=== PATIENT | male | born 1975 | race Caucasian/White ===

== ENCOUNTER 2018-06-23 14:15 | Inpatient (IN) | payer OTHER ==
[~2018-06-23] VITALS: Ht 182.9 cm; Wt 124.8 kg
[2018-06-23 14:58] LABS: ABSOLUTE BASOPHIL COUNT 0.1 /CUMM (0.0-0.2); ABSOLUTE EOSINOPHIL COUNT 0.1 /CUMM (0.0-0.7); ABSOLUTE GRANULOCYTE CT 3.4 /CUMM (1.4-6.5); ABSOLUTE LYMPH COUNT 1.5 /CUMM (1.2-3.4); ABSOLUTE MONOCYTE COUNT 0.3 /CUMM (0.10-0.60); BASOPHIL % 1.5 % (0.0-2.0); EOSINOPHIL % 1.7 % (0-5); HEMATOCRIT 46.8 % (42-52); MEAN CORPUSCULAR HGB 32.8 PG (27.0-31.0); MEAN CORPUSCULAR HGB CONC 35.1 G/DL (33.0-37.0); MEAN CORPUSCULAR VOLUME 93.5 FL (80.0-94.0); MEAN PLATELET VOLUME 7.1 FL (7.4-10.4); PLATELET COUNT 292 /CUMM (130-400); RED BLOOD CELL CT 5.01 /CUMM (4.70-6.10); WHITE BLOOD CELL COUNT 5.4 /CUMM (4.8-10.8)
[2018-06-23] MEDS ORDERED: WELLBUTRIN XL150 M2 PO (15:40)
[2018-06-23] MEDS ORDERED: OMEPRAZOLE40 M1 PO (15:41)
[2018-06-23] MEDS ORDERED: ESCITALOPRAM OX20 MG PO (15:41)
[2018-06-23] MEDS ORDERED: MIRTAZAPINE7.5 M1 PO (15:41)
[2018-06-23] MEDS ORDERED: NYSTATIN100000 UNI PO (15:42)
--- NOTE | 2018-06-23 15:43 | ED PSYCHIATRIC COMPLAINT ---
History of Present Illness General Chief Complaint: ETOH/Drug Related Complaint Stated Complaint: SENT IN FOR HIGH WATCH Source: patient, Exam Limitations: poor historian, intoxication Vital Signs & Intake/Output Vital Signs & Intake/Output Vital Signs Date Time Temp Pulse Resp B/P B/P Pulse O2 O2 Flow FiO2 Mean Ox Delivery Rate 06/25 1852 98.3 102 20 152/93 96 Room Air 06/25 1430 97.8 92 18 125/87 97 Room Air 06/25 1102 98.3 95 18 150/68 95 Room Air 06/25 1000 97.9 81 18 144/102 06/25 0933 81 144/102 06/25 0800 97.9 81 18 144/102 06/25 0747 97.9 81 18 144/102 95 Room Air 06/25 0200 97.5 81 20 152/94 06/25 0159 97.5 81 20 152/94 97 06/25 0029 139/86 06/24 2245 107 164/121 06/24 2200 98.3 107 20 164/121 06/24 2200 98.3 107 20 164/121 95 Room Air 06/24 2000 98.0 94 20 154/100 ED Intake and Output 06/25 0000 06/24 1200 Intake Total 550 810 Output Total Balance 550 810 Intake, IV 50 750 Intake, Oral 500 60 Number 1 0 Bowel Movements Allergies Coded Allergies: No Known Allergies (06/23/18) Reconcile Medications Acamprosate Calcium 333 MG TABLET. 2 TAB PO TID alc dependence (Reported) Bupropion HCl (Wellbutrin XL) 150 MG TAB.ER.24H 1 TAB PO DAILY MENTAL HEALTH (Reported) Escitalopram Oxalate 20 MG TABLET 1 TAB PO DAILY MENTAL HEALTH (Reported) Mirtazapine 7.5 MG TABLET 1 TAB PO QPM SLEEP (Reported) Nystatin 100,000 UNIT/ML ORAL.SUSP 5 ML PO 4 TIMES/DAY GI (Reported) Omeprazole 40 MG CAPSULE. 1 CAP PO BID GI (Reported) Triage Note: 43 YO MALE TO TRIAGE FOR HIGHWATCH CLERENCE. 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 STATES ?SEIZURE HX WITH W/D. Triage Nurses Notes Reviewed? yes HPI: Patient presents for evaluation of alcohol dependence and cocaine use. Patient wishes to go to [facility] for residential alcohol rehabilitation. He admits to drinking 12-15 minutes daily and his last alcohol intake was prior to arrival to the emergency department. He states his last cocaine use was about 10-12 days ago, prior to that, up to 5 times per week. He recently had an endoscopy which showed inflammation of the esophagus and stomach for which she currently takes omeprazole and nystatin. Past History Travel History Traveled to [place] past 21 day No Medical History Any Pertinent Medical History? 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 No Review of Systems Review of Systems Constitutional: Reports: no symptoms. EENTM: Reports: no symptoms. Respiratory: Reports: no symptoms. Cardiovascular: Reports: no symptoms. GI: Reports: no symptoms. Genitourinary: Reports: no symptoms. Musculoskeletal: Reports: no symptoms. Skin: Reports: no symptoms. Neurological/Psychological: Reports: see HPI. Hematologic/Endocrine: Reports: no symptoms. Immunologic/Allergic: Reports: no symptoms. All Other Systems: Reviewed and Negative Physical Exam Physical Exam General Appearance: SEE BELOW Neurological/Psychiatric: SEE BELOW Comments: Gen.: Well-nourished, well-developed, no acute respiratory distress. Head: Normocephalic, atraumatic. Eyes: Normal inspection bilaterally Ears: Normal inspection bilaterally Nose: Normal inspection Throat/mouth : Moist mucosa Neck: Supple, full range of motion, no goiter Heart: Regular rate and rhythm, no murmurs rubs or gallops Lungs: Clear to auscultation bilaterally with normal air entry Chest: Nontender Back: Normal range of motion Abdomen: Soft, nontender, nondistended, normal bowel sounds Extremities: Normal range of motion grossly, equal radial pulses, no cyanosis clubbing or edema Neurologic: Cranial nerves grossly intact, speech is clear Skin: warm and dry Psychiatric: Calm, cooperative, no apparent delusions or hallucinations SAD PERSONS Done? patient not suicidal Progress Differential Diagnosis: drug intoxication, drug withdrawal, electrolyte abnormality, hypoglycemia Plan of Care: Current Medications Sig/Josiah Start time Last Medication Dose Stop Time Status Admin Lorazepam 1.5 MG Q8 06/25 1400 AC 06/25 (Ativan) 1319 Clonidine 0.1 MG BID 06/25 0900 AC 06/25 (Catapres) 0933 Acamprosate 666 MG TID 06/24 1000 AC 06/25 (Campral 333 MG) 1319 Lorazepam 0 Q1P PRN 06/24 1000 AC 06/25 (Ativan) 1848 Bupropion HCl 150 MG DAILY 06/24 09 AC 06/25 (Wellbutrin XL) 0903 Enoxaparin Sodium 40 MG DAILY 06/24 09 AC 06/25 (Lovenox) 0903 Escitalopram Oxalate 20 MG DAILY 06/24 09 AC 06/25 (Lexapro) 0904 Folic Acid 1 MG DAILY 06/24 09 AC 06/25 (Folic Acid) 0903 Multivitamins 1 TAB DAILY 06/24 09 AC 06/25 (Theragran Vitamins) 0903 Thiamine HCl 100 MG DAILY 06/24 09 AC 06/25 (Vitamin B1) 0903 Acetaminophen 650 MG Q6P PRN 06/23 2330 AC (Tylenol) Mirtazapine 7.5 MG QPM 06/23 2100 AC 06/24 (Remeron) 2122 Omeprazole 40 MG BID 06/23 2100 AC 06/25 (Prilosec) 0904 Nystatin 5 ML 4 TIMES/DAY 06/23 1719 AC 06/25 (Mycostatin Susp) 1811 Laboratory Tests 06/25/18 0845: Anion Gap 9, Estimated GFR > 60, BUN/Creatinine Ratio 16.3 Departure Departure Disposition: STILL A PATIENT Condition: Stable Clinical Impression Primary Impression: Alcohol withdrawal Referrals: Patient Has No Primary Care Dr (PCP/Family) Departure Forms: Customer Survey General Discharge Information Admission Note Spoke With: Wilian Jacob MD Documentation of Exam: Documentation of any treatments & extenuating circumstances including Concerns Regarding Discharge (functional status, medication knowledge or non-compliance, living conditions, etc.) that warrant an admission rather than observation: Continued alcohol consumption places the patient at high risk of pancreatitis, pancreatic failure, liver failure and cirrhosis. In order to avoid this the patient will need to cease drinking alcohol. Patient's alcohol use places pt at high risk of seizures and delirium tremens during cessation. Patient will be at high risk of withdrawal seizures and delirium tremens (both of which can be fatal) for up to 5 days after stopping alcohol. pt will require IV Ativan to prevent these complications. pt is therefore a very poor candidate for outpatient treatment given the above concerns and treatment needs. Pt will require a multiple day hospitalization. Critical Care Note Critical Care Note Critical Care Time: 30-74 min
[2018-06-23 16:20] VITALS: BP 130/86
[2018-06-23 18:01] VITALS: BP 140/92
[2018-06-23 20:10] VITALS: BP 132/84
[2018-06-23 20:12] LABS: PT 13.9 SEC (9.4-12.5)
--- NOTE | 2018-06-23 20:21 | History & Physical ---
Gerald Mcpherson 06/23/18 2020: General Information and HPI MD Statement: I have seen and personally examined REX DEE and documented this H&P. The patient is a 43 year old M who presented with a patient stated chief complaint of [detox to go to [facility]]. Source of Information: patient Exam Limitations: intoxication History of Present Illness: 43 year old male with a significant history of alcohol abuse presents for EtOH detox and high watch clearance. For over 2 years now the patient has consumed alcohol daily, often 10-15 "nips" of 100 proof vodka as well as several beers to "appear social". He feels now that "it is time to stop". He has previously been detoxed at alcohol treatment programs at [facility], but relapsed. He has never been treated in the ICU for detox, and is unsure whether he has had seizures due to alcohol withdrawal but thinks he possibly has. The patient's last drink was immediately prior to coming to the emergency department. 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 The patient reports that most mornings he wakes up with dry heaves, headache and tremorshe does not have these at presentation. He denies audio/visual/tactile hallucinations. Denies current agitation/anxiety. Additionally, he denies chest pain palpitations, shortness of breath, constipation or diarrhea, also denies suicidal ideation or homicidal ideation. There are no guns in the home. He denies tobacco use, but does report recent cocaine use, 2.5 weeks ago which for him is "a while". He snorts cocaine and uses approximately $100 worth each week. Allergies/Medications Allergies: Coded Allergies: No Known Allergies (06/23/18) Home Med list Bupropion HCl (Wellbutrin XL) 150 MG TAB.ER.24H 1 TAB PO DAILY MENTAL HEALTH (Reported) Escitalopram Oxalate 20 MG TABLET 1 TAB PO DAILY MENTAL HEALTH (Reported) Mirtazapine 7.5 MG TABLET 1 TAB PO QPM SLEEP (Reported) Nystatin 100,000 UNIT/ML ORAL.SUSP 5 ML PO 4 TIMES/DAY GI (Reported) Omeprazole 40 MG CAPSULE.DR 1 CAP PO BID GI (Reported) Past History Travel History Traveled to [place] past 21 day No Medical History Neurological: NONE EENT: NONE Cardiovascular: NONE Respiratory: NONE Gastrointestinal: NONE Hepatic: NONE Renal: NONE Musculoskeletal: NONE Psychiatric: depression, insomnia Endocrine: NONE Blood Disorders: NONE Cancer(s): NONE 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 Cardiovascular: Denies: chest pain, orthopena, palpitations, peripheral edema. Respiratory: Denies: cough, short of breath, sputum production. GI: Denies: abdominal pain, constipation, diarrhea, nausea, vomiting. Neurological/Psychological: Reports: tremors. Denies: anxiety, confusion, depressed, numbness. Exam & Diagnostic Data Last 24 Hrs of Vital Signs/I&O Vital Signs Date Time Temp Pulse Resp B/P B/P Pulse O2 O2 Flow FiO2 Mean Ox Delivery Rate 06/23 230 98.8 103 18 146/86 06/23 2300 98.8 103 18 146/86 96 Room Air 06/23 2010 98.0 106 18 132/84 06/23 1801 97.8 102 20 140/92 06/23 1801 97.8 102 20 140/92 99 Room Air 06/23 1620 98.3 100 18 130/86 06/23 1620 98.3 100 18 130/86 96 Room Air 06/23 1426 98.6 106 18 139/90 98 Room Air Intake & Output 06/24 0800 06/24 0000 06/23 1600 Intake Total 0 Output Total Balance 0 Intake, Oral 0 Patient 124.795 kg 122.47 kg Weight Weight Bed scale Reported by Patient Measurement Method Physical Exam General Appearance Alert (intoxicated), Oriented X3, Cooperative, No Acute Distress HEENT Atraumatic, PERRLA, EOMI (w/ horizontal nystagmus) Cardiovascular Regular Rate, Normal S1, Normal S2, No Murmurs Lungs Clear to Auscultation, Normal Air Movement Abdomen Normal Bowel Sounds, Soft, No Tenderness Neurological Strength at 5/5 X4 Ext, Normal Tone, Sensation Intact, unsteady gait (speech slightly slurred), speech slightly slurred Last 24 Hrs of Labs/[place]: Laboratory Tests 06/23/181957: PT 13.9 H, INR 1.27 H 09/18/18 1935: Urine Opiates Screen < 100, Methadone Screen 63, Barbiturate Screen < 60, Ur Phencyclidine Scrn < 6.00, Amphetamines Screen 139, U Benzodiazepines Scrn < 85, Urine Cocaine Screen < 50, Urine Cannabis Screen < 5.00, Urine Color YEL, Urine Clarity CLEAR, Urine pH 6.0, Ur Specific Early 1.015, Urine Protein NEG, Urine Ketones NEG, Urine Nitrite NEG, Urine Bilirubin NEG, Urine Urobilinogen 0.2, Ur Leukocyte Esterase NEG, Ur Microscopic EXAM NOT REQUIRED, Urine Hemoglobin NEG, Urine Glucose NEG 06/23/18 1448: Anion Gap 10, Estimated GFR > 60, BUN/Creatinine Ratio 12.5, Glucose 116 H, Calcium 8.8, Magnesium 2.2, Total Bilirubin 0.5, AST 210 H, ALT 218 H, Alkaline Phosphatase 114, Total Protein 7.6, Albumin 4.1, Globulin 3.5, Albumin/ Globulin Ratio 1.2, CBC w Diff NO MAN DIFF REQ, RBC 5.01, MCV 93.5, MCH 32.8 H, MCHC 35.1, RDW 13.0, MPV 7.1 L, Gran % 64.0, Lymphocytes % 27.2, Monocytes % 5.6, Eosinophils % 1.7, Basophils % 1.5, Absolute Granulocytes 3.4, Absolute Lymphocytes 1.5, Absolute Monocytes 0.3, Absolute Eosinophils 0.1, Absolute Basophils 0.1, Hepatitis A IgM Ab Pending, Hep Bs Antigen Pending, Hep B Core IgM Ab Conf Pending, Hepatitis C Antibody Pending, Serum Alcohol 349.0 Assessment/Plan Assessment: 43-year-old alcoholic male presenting for detox and medical clearance for high watch. Problems: 1. EtOH withdrawal 2. EtOH detox 3. Elevated transaminases Plan: Full code As Ranked By This Provider Problem List: 1. Alcohol withdrawal 2. Polysubstance abuse Core Measures/Misc (06/22) Acute Coronary Syndrome ACS Diagnosis: No Congestive Heart Failure Congestive Heart Failure Diagnosis No Cerebrovascular Accident CVA/TIA Diagnosis: No VTE (View Protocol) VTE Risk Factors Age>40 No Mechanical VTE Prophylaxis d/t N/A MechProphylax Ordered No VTE Pharm Prophylaxis d/t NA PharmProphylax ordered Sepsis (View protocol) If YES complete Sepsis Event Note If YES complete Sepsis Event Note Fercho Mcelroy MD 06/23/18 2101: Core Measures/Misc (06/22) Sepsis (View protocol) If YES complete Sepsis Event Note If YES complete Sepsis Event Note Resident Review Statement Resident Statement: examined this patient, discussed with hospital internship, agreed with hospital internship, amended to note Other Findings: Patient is a 43-year-old male with past medical history depression, insomnia, alcohol abuse presenting this admission with for evaluation of alcohol dependence and cocaine use. Patient reports that he is coming in today because he wants to go to [facility] for his alcohol abuse/dependence. Reports that he drinks approximately 10-15 nips of 100 proof spinoff along with a few beers per day for the past few years. Reports that his last drink was at noon on day of admission. Patient reports previous admission for detox at [facility] approximately 2 years ago for 5 days. Reports questionable history of alcohol withdrawal seizures. Denies any ICU admission for alcohol withdrawal. Patient reports mild headache, tremors, palpitations, abdominal pain located in the right upper quadrant, nausea and dry heaving daily. Denies chest pain, shortness of breath, vomiting, constipation/diarrhea, dysuria/hematuria. Denies suicidal or homicidal ideations. Denies having guns at home. Patient also reports cocaine use. States he last sniffed cocaine was 2.5 weeks ago. States he is unsure of how much he uses however reports spending approximately 100 hours a week doing cocaine. Patient denies any other illicit drug use including IV drug use. Denies tobacco use. 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 Allergies: Denies any allergies to medications Medications: Currently on albuterol and, Lexapro, mirtazapine On admission: Vitals: MAXIMUM TEMPERATURE 98.6, heart rate 100-106, respiration rate 18-20, blood pressure 132/84, saturating at 96-99% on room air Physical exam as above Labs significant for serum alcohol level of 349, methadone 63, amphetamines 139, urine cocaine screen less than 50, AST 210, ALT 218 Patient is a 43-year-old male with past medical history significant for alcohol and cocaine abuse presenting this admission for alcohol detox prior to going to [facility]. Patient CIWA max was 15 in the ED. Patient received 4 mg lorazepam IV and a banana bag. Plan: Admit to general med CIVA protocol Ativan 2mg q6h standing dose Social work consult Continue home medications Complete banana bag Continue thiamine, folic acid and multivitamin supplement Wellbutrin and Lexapro held today Right upper quadrant ultrasound Hepatitis panel Repeat LFTs in a.m. Code: Full code DVT PPx: ALPS, Lovenox Diet: Regular diet, will keep nothing by mouth for right upper quadrant ultrasound Wilian Jacob 06/23/18 2251: Core Measures/Misc (06/22) Sepsis (View protocol) Sepsis Present: No If YES complete Sepsis Event Note If YES complete Sepsis Event Note Attending MD Review Statement Attending Statement Attending MD Statement: examined this patient, discuss w/resident/PA/DRESSED POULTRY GRADER, agreed w/resident/PA/DRESSED POULTRY GRADER Attending Assessment/Plan: Addendum by . Patient was seen and examined at bedside today (06/23/18 ) at 7:30Pm. Reviewed the history physical done by the resident. Reviewed the past medical family, family, social history. ROS: 10 point system reviewed and negative except as described above. Mr. Delgado is 43 years old male with history of alcohol use disorder, prior history of alcohol questionable withdrawal seizures many years ago, also has history of depression, GERD who is here in the emergency room for alcohol intoxication. Patient was willing to go to inpatient alcohol rehab specifically to [facility]. But he has alcohol level was 349 and also had a score of 15 on CIWA scale. So [facility] requester will stabilization by admitting to hospital. Patient says that he has right upper quadrant abdominal pain going on for a few days. Patient admits drinking 10-15 shots of vodka every day. He has a chronic alcohol abuse for many years, since in the recent past he never went a day without alcohol. Exam: Pertinent exam shows patient is alert, awake, oriented 3. 1 normal speech, normal affect, cooperative. Tachycardia regular heart sounds. Lungs are clear Abdomen-right upper quadrant tenderness, no erythema, no hepatomegaly. Abdomen is obese, not distended. No leg edema, see full exam for resident note. Labs reviewed. Assessment and plan: #Alcohol intoxication-start him on CIWA protocol, start him on thiamine, folate. Patient received banana bag in the ER. Patient already has elevated score on the CIWA scale. Give standing lorazepam. If see was score is high in spite of Ativan or patient gets hesitation or worse withdrawal symptoms and and Librium 3 times daily. Patient is willing to go to inpatient psych, can be discharged once his condition is stable from alcohol withdrawal. #Right upper quadrant pain with elevated AST ALT this is likely alcoholic hepatitis. Will check a right upper quadrant ultrasound, hepatitis viral panel. Monitor LFTs. #History of depression, GERD-continue the home medications. Reviewed with the resident. Agree with the rest of the plan as per resident's note. Dr.Ravinder Nicolette MD. Hospitalist. Pager: [phone], cell: [phone].
[2018-06-23 23:00] VITALS: BP 146/86
[2018-06-24] VITALS (9 sets, daily range): BP systolic 120–164; BP diastolic 80–121
--- NOTE | 2018-06-24 07:24 | PN- Housestaff ---
Mitchell Turner 06/24/18 0724: Subjective Follow-up For: Alcohol detox Subjective: Patient seen and examined at bedside. He was sleeping. He was complaining mild pain at right hypochondriuM He denies. He was also complaining of sweating and tremors. He denies fever, chills, chest pain, palpitation, abdominal pain, diarrhea, constipation. Review of Systems Constitutional: Reports: see HPI. Objective Last 24 Hrs of Vital Signs/I&O Vital Signs Date Time Temp Pulse Resp B/P B/P Pulse O2 O2 Flow FiO2 Mean Ox Delivery Rate 06/24 1409 98.0 91 20 146/105 95 06/24 1100 97.7 101 20 156/104 95 Room Air 06/24 1000 156/106 06/24 0703 97.5 96 18 130/82 95 06/24 0400 97.5 104 18 120/80 06/24 0000 98.8 103 18 146/86 06/23 2300 98.8 103 18 146/86 06/23 2300 98.8 103 18 146/86 96 Room Air 06/23 2010 98.0 106 18 132/84 Intake & Output 06/24 1600 06/24 0800 06/24 0000 Intake Total 810 605 Output Total Balance 810 605 Intake, IV 750 125 Intake, Oral 60 480 Number 0 0 Bowel Movements Patient 275 lb Weight Weight Bed scale Measurement Method Physical Exam General Appearance: Alert, Oriented X3, Cooperative, No Acute Distress Cardiovascular: Normal S1, Normal S2 Lungs: Clear to Auscultation, Normal Air Movement Abdomen: Normal Bowel Sounds, Soft, No Tenderness Extremities: No Clubbing, No Cyanosis, No Edema, Normal Pulses, No Tenderness/ Swelling Assessment/Plan Assessment: 43-year-old male with past medical history alcohol use disorder, depression, history of seizures related to alcohol withdrawal presented to emergency department for alcohol detox and high watch clearance. Previously he was enrolled in alcohol detox program at [facility], but relapsed. At the time of presentation to emergency department his vitals and labs are given below Vitals : temperature 9. Labs: WBC 5.4, hemoglobin/hematocrit 16.4/46.8, MCV 93.5, platelet count 292 Sodium 144, potassium 4.0, chloride 106, anion gap 10, creatinine 0.8, BUN/ creatinine ratio 12.5, glucose 116 Alcohol level 349 AST/ALT to 210/218 Total bilirubin 0.4 Hepatitis viral panel is negative for hepatitis B, Hepatitis C, hepatitis A Problems list: * Alcohol detox * EtOH withdrawal Alcohol detox: * Patient is on CIWA protocol score is 2 * He having sweating and tremors today * He is on 2 mg Ativan taper every 6 hour thiamine, folate. * Will taper of lorazepam will follow up further * Will recommend an outpatient IOP for alcohol detox * family services worker will consult further with patient * For no patient is willing to go to [facility] for now Alcohol induced transaminitis: * His ALT AST elevated * trending down today compared to yesterday * Ultrasonography of the right hypochondrium is normal * Hepatitis B, C and A workup is negative for any infection History of depression, GERD-continue the home medications. *GI/DVT prophylaxis *Full code *Will keep tapering up lorazepam Problem List: 1. Alcohol withdrawal 2. Polysubstance abuse Pain Ratin Pain Location: Right hypochondrium Pain Goal: Remain pain free Pain Plan: Pain management pathway Tomorrow's Labs & Rationales: CBC, BEP Ashley Weinstein 06/24/18 1132: Attending MD Review Statement Attending Statement Attending MD Statement: examined this patient, discuss w/resident/PA/DISTRIBUTED GENERATION PROJECT MANAGER, agreed w/resident/PA/DISTRIBUTED GENERATION PROJECT MANAGER, discussed with family, reviewed EMR data (avail), discussed with nursing, discussed with case mgmt, reviewed images, amended to note Attending Assessment/Plan: Danny is 43 years old male with history of alcohol use disorder, prior history of alcohol questionable withdrawal seizures many years ago, also has history of depression, GERD who is here in the emergency room for alcohol intoxication. Patient was willing to go to inpatient alcohol rehab specifically to [facility]. Patient was seen and examined at bedside. Labs reviewed. Vitals with HR 104 BP 130/82 spo2 95 on RA. 1. Alcohol intoxication-Continue CIOK protocol, thiamine, folate. Ativan taper. 2. Right upper quadrant pain with elevated AST ALT this is likely alcoholic hepatitis. F/u right upper quadrant ultrasound, hepatitis viral panel. Monitor LFTs. 3 History of depression, GERD-continue the home medications. SW consult. Patient is willing to go to [facility], can be discharged once his condition is stable from alcohol withdrawal.
[2018-06-24 09:26] LABS: PT 14.4 SEC (9.4-12.5); PTT 27 SEC (25-37)
[2018-06-24 09:31] LABS: ABSOLUTE BASOPHIL COUNT 0.1 /CUMM (0.0-0.2); ABSOLUTE EOSINOPHIL COUNT 0.1 /CUMM (0.0-0.7); ABSOLUTE GRANULOCYTE CT 2.5 /CUMM (1.4-6.5); ABSOLUTE LYMPH COUNT 1.4 /CUMM (1.2-3.4); ABSOLUTE MONOCYTE COUNT 0.3 /CUMM (0.10-0.60); BASOPHIL % 1.5 % (0.0-2.0); EOSINOPHIL % 3.3 % (0-5); GRANULOCYTE % 56.4 % (42.2-75.2); HEMATOCRIT 43.8 % (42-52); MEAN CORPUSCULAR HGB 32.7 PG (27.0-31.0); MEAN CORPUSCULAR HGB CONC 34.6 G/DL (33.0-37.0); MEAN CORPUSCULAR VOLUME 94.4 FL (80.0-94.0); MEAN PLATELET VOLUME 7.4 FL (7.4-10.4); PLATELET COUNT 258 /CUMM (130-400); RBC DISTRIBUTION WIDTH 13.3 % (11.5-14.5); RED BLOOD CELL CT 4.64 /CUMM (4.70-6.10); WHITE BLOOD CELL COUNT 4.5 /CUMM (4.8-10.8)
[2018-06-24] MEDS ORDERED: ACAMPROSATE CA333 M1 PO (09:51)
--- NOTE | 2018-06-24 14:34 | ULTRASOUND REPORT ---
EXAMINATION: US ABDOMEN LIMITED CLINICAL INFORMATION: Right upper quadrant pain. Patient states right upper quadrant pain for 3 days. COMPARISON: None TECHNIQUE: Real-time imaging of the right upper quadrant abdominal viscera. FINDINGS: Evaluation is limited by the patient's body habitus and bowel gas. PANCREAS: Completely obscured by overlying bowel gas. LIVER: Liver is diffusely echogenic, consistent with hepatic steatosis. There is attenuation of sound beam penetration, limiting assessment. Liver is enlarged, measuring at least 20 cm longitudinally. No focal lesion or intrahepatic biliary duct dilatation. With color Doppler imaging, the main portal vein is found to be patent with normal hepatopetal flow seen. GALLBLADDER: Normal. The gallbladder is physiologically distended without evidence of stones, sludge, polyps, wall thickening or pericholecystic fluid. COMMON BILE DUCT: Not seen. RIGHT KIDNEY: Normal. No hydronephrosis. No renal calculi or focal parenchymal lesions. The kidney measures 11.1 cm in maximum dimension. FREE FLUID: None. IMPRESSION: 1. Limited exam with nonvisualization of the pancreas and common bile duct. 2. Enlarged echogenic liver, consistent with hepatic steatosis. No definite hepatic mass seen though evaluation is limited. 3. Gallbladder and right kidney unremarkable.
[2018-06-25] VITALS (10 sets, daily range): BP systolic 125–154; BP diastolic 68–102
--- NOTE | 2018-06-25 06:56 | PN- Housestaff ---
Mitchell Turner 06/25/18 0655: Subjective Follow-up For: Alcohol detox Subjective: Patient seen and examined in bed. He was awake, he was doing good. his condition was far better compare to yesterday. He was denying fever, chills, seizures, palpitation, apprehention, chest pain. Review of Systems Constitutional: Reports: see HPI. Objective Last 24 Hrs of Vital Signs/I&O Vital Signs Date Time Temp Pulse Resp B/P B/P Pulse O2 O2 Flow FiO2 Mean Ox Delivery Rate 06/25 1852 98.3 102 20 152/93 96 Room Air 06/25 1430 97.8 92 18 125/87 97 Room Air 06/25 1102 98.3 95 18 150/68 95 Room Air 06/25 1000 97.9 81 18 144/102 06/25 0933 81 144/102 06/25 0800 97.9 81 18 144/102 06/25 0747 97.9 81 18 144/102 95 Room Air 06/25 0200 97.5 81 20 152/94 06/25 0159 97.5 81 20 152/94 97 06/25 0029 139/86 06/24 2245 107 164/121 06/24 2200 98.3 107 20 164/121 06/24 2200 98.3 107 20 164/121 95 Room Air Intake & Output 06/25 1600 06/25 0800 06/25 0000 Intake Total 800 490 Output Total Balance 800 490 Intake, IV 10 Intake, Oral 800 480 Number 0 Bowel Movements Physical Exam General Appearance: Alert, Oriented X3, Cooperative, No Acute Distress Cardiovascular: Regular Rate, Normal S1, Normal S2, No Murmurs Lungs: Clear to Auscultation, Normal Air Movement Abdomen: Normal Bowel Sounds, Soft, No Tenderness Extremities: No Clubbing, No Cyanosis, No Edema, Normal Pulses, No Tenderness/ Swelling Assessment/Plan Assessment: 43-year-old male with past medical history alcohol use disorder, depression, history of seizures related to alcohol withdrawal presented to emergency department for alcohol detox and [facility] clearance. Previously he was enrolled in alcohol detox program at [facility], but relapsed. At the time of presentation to emergency department his vitals and labs are given below Vitals : temperature 9. Labs: WBC 5.4, hemoglobin/hematocrit 16.4/46.8, MCV 93.5, platelet count 292 Sodium 144, potassium 4.0, chloride 106, anion gap 10, creatinine 0.8, BUN/ creatinine ratio 12.5, glucose 116 Alcohol level 349 AST/ALT to 210/218 Total bilirubin 0.4 Hepatitis viral panel is negative for hepatitis B, Hepatitis C, hepatitis A Problems list: * Alcohol detox * EtOH withdrawal * Pain in right hypochondrium/Hepatic steatosis Alcohol detox: * Patient was admitted for alcohol detox * He is on Lorazepam taper 1.5mg Q8. * Accomprosate for craving * FA, B12 and multivitamin * patient is willing to go to [facility] for now * Alcohol induced transaminitis: * Patient having alcohol induced transaminitis * LFTs trending down History of depression, GERD-continue the home medications. *GI/DVT prophylaxis *Full code *Will keep tapering up lorazepam Problem List: 1. Alcohol withdrawal 2. Polysubstance abuse Pain Ratin Pain Location: no pain Pain Goal: Remain pain free Pain Plan: pain management pathway Tomorrow's Labs & Rationales: no labs Ashley Weinstein 06/25/18 1019: Attending MD Review Statement Attending Statement Attending MD Statement: examined this patient, discuss w/resident/PA/GRAVEDIGGER, agreed w/resident/PA/GRAVEDIGGER, discussed with family, reviewed EMR data (avail), discussed with nursing, discussed with case mgmt, reviewed images, amended to note Attending Assessment/Plan: Patient was seen and examined at bedside. Vitals noted. BP uncontrolled. CIWA. Required minimal prn doses. 1. Alcohol intoxication-Continue CIWA protocol, thiamine, folate. Ativan taper. 2. Right upper quadrant pain with elevated AST ALT this is likely alcoholic hepatitis. F/u right upper quadrant ultrasound with hepatosis. 3 History of depression, GERD-continue the home medications. 4. Uncontrolled hypertension: bp elevated. Added clonidine 01. mg bid SW f/u. Patient is willing to go to [facility], can be discharged once his condition is stable from alcohol withdrawal.
[2018-06-26 03:00] VITALS: BP 148/90
[2018-06-26 07:00] VITALS: BP 116/68
--- NOTE | 2018-06-26 07:33 | PN- Housestaff ---
Mitchell Turner 06/26/18 0733: Subjective Follow-up For: Alcohol detox Subjective: Patient seen and examined at bedside. Initially he was sleeping. On second visit the patient was awake and oriented in time place person. He was not complaining of any tremor anxiety, seizure, palpitation, fever, chills, abdominal pain, diarrhea, constipation. Review of Systems Constitutional: Reports: see HPI. Objective Last 24 Hrs of Vital Signs/I&O Vital Signs Date Time Temp Pulse Resp B/P B/P Pulse O2 O2 Flow FiO2 Mean Ox Delivery Rate 06/26 2018 97.6 95 18 136/90 96 Room Air 06/26 1400 98.3 98 20 112/64 97 Room Air 06/26 1400 98.3 109 16 110/66 96 Room Air 06/26 1400 98.0 94 22 126/100 97 Room Air 06/26 1200 98.4 88 18 118/68 06/26 1200 98.4 88 18 118/68 98 Room Air Room Air 06/26 0819 89 116/68 06/26 0700 98.2 89 18 116/68 96 06/26 0300 98.1 102 20 148/90 94 06/25 2300 98.3 100 18 154/94 96 Room Air 06/25 2243 100 154/94 Intake & Output 06/26 1600 06/26 0800 06/26 0000 Intake Total 800 120 480 Output Total Balance 800 120 480 Intake, Oral 800 120 480 Physical Exam General Appearance: Alert, Oriented X3, Cooperative, No Acute Distress Cardiovascular: Normal S1, Normal S2 Lungs: Clear to Auscultation, Normal Air Movement Abdomen: Normal Bowel Sounds, Soft Extremities: No Clubbing, No Cyanosis, No Edema Assessment/Plan Assessment: 43-year-old male with past medical history alcohol use disorder, depression, history of seizures related to alcohol withdrawal presented to emergency department for alcohol detox and [facility]. Previously he was enrolled in alcohol detox program at [facility], but relapsed. At the time of presentation to emergency department his vitals and labs are given below Vitals : temperature 9. Labs: WBC 5.4, hemoglobin/hematocrit 16.4/46.8, MCV 93.5, platelet count 292 Sodium 144, potassium 4.0, chloride 106, anion gap 10, creatinine 0.8, BUN/ creatinine ratio 12.5, glucose 116 Alcohol level 349 AST/ALT to 210/218 Total bilirubin 0.4 Hepatitis viral panel is negative for hepatitis B, Hepatitis C, hepatitis A Problems list: * Alcohol detox * EtOH withdrawal * Pain in right hypochondrium/Hepatic steatosis Alcohol detox: * Patient having no withdrawal symptoms today * We can discharge him on Friday to [facility]. * He is on Lorazepam taper 1.5mg every 12 * Accomprosate for craving * FA, B12 and multivitamin * patient is willing to go [facility] for now Pain in right hypochondrium/Hepatic steatosis: Patient having hepatic steatosis on ultrasonography He is feeling a little bit discomfort but there is no pain right now Patient will follow for spina bifida physician outpatient basis Full code DVT GI prophylaxis Problem List: 1. Alcohol withdrawal 2. Polysubstance abuse Pain Ratin Pain Location: No pain Pain Goal: Remain pain free Pain Plan: Pain management pathway Tomorrow's Labs & Rationales: No labs Ashley Weinstein 06/26/18 1101: Attending MD Review Statement Attending Statement Attending MD Statement: examined this patient, discuss w/resident/PA/PHOTOGRAPH RETOUCHER, agreed w/resident/PA/PHOTOGRAPH RETOUCHER, discussed with family, reviewed EMR data (avail), discussed with nursing, discussed with case mgmt, reviewed images, amended to note Attending Assessment/Plan: Patient was seen and examined at bedside. No new complaints, resting comfrotably in bed. CIWA. Required 7mg of ativan overnight. 1. Alcohol intoxication-Continue CIWA protocol, thiamine, folate. Ativan taper. 2. Right upper quadrant pain with elevated AST ALT this is likely alcoholic hepatitis. F/u right upper quadrant ultrasound with hepatosis. 3 History of depression, GERD-continue the home medications. 4. Controlled hypertension: bp better. change clonidine 0.1 mg prn SW f/u. Patient is willing to go to [facility], can be discharged once his condition is stable from alcohol withdrawal.
[2018-06-26 12:00] VITALS: BP 118/68
[2018-06-26 14:00] VITALS: BP 110/66; BP 112/64; BP 126/100
[2018-06-26 20:18] VITALS: BP 136/90
[2018-06-27 01:02] VITALS: BP 140/100
[2018-06-27 06:34] VITALS: BP 136/100
--- NOTE | 2018-06-27 06:48 | PN- Housestaff ---
Mitchell Turner 06/27/18 0648: Subjective Follow-up For: Alcohol detox Subjective: Patient seen and examined at bedside. He is oriented to place person.. He having no activation. He was asking for discharge to [facility]. He denies fever, chest pain, abdominal pain, diarrhea, constipation, seizures, palpitation, , burning micturition Review of Systems Constitutional: Reports: see HPI. Objective Last 24 Hrs of Vital Signs/I&O Vital Signs Date Time Temp Pulse Resp B/P B/P Pulse O2 O2 Flow FiO2 Mean Ox Delivery Rate 06/27 2132 91 148/90 06/270 98.1 108 19 164/108 96 Room Air 06/27 2030 106 164/108 06/27 1425 97.8 92 18 150/52 97 06/27 1000 97.9 88 18 136/96 97 Room Air Room Air 06/27 0634 97.9 90 20 136/100 96 Room Air 06/27 0102 97.9 78 20 140/100 96 Room Air Intake & Output 06/27 1600 06/27 0800 06/27 0000 Intake Total 1000 800 Output Total Balance 1000 800 Intake, Oral 1000 800 Physical Exam General Appearance: Alert, Oriented X3, Cooperative, No Acute Distress Cardiovascular: Normal S1, Normal S2 Lungs: Clear to Auscultation, Normal Air Movement Abdomen: Normal Bowel Sounds, Soft, No Hepatospenomegaly, No Masses Assessment/Plan Assessment: 43-year-old male with past medical history alcohol use disorder, depression, history of seizures related to alcohol withdrawal presented to emergency department for alcohol detox and [facility] clearance. Previously he was enrolled in alcohol detox program at [facility], but relapsed. At the time of presentation to emergency department his vitals and labs are given below Vitals : temperature 9. Labs: WBC 5.4, hemoglobin/hematocrit 16.4/46.8, MCV 93.5, platelet count 292 Sodium 144, potassium 4.0, chloride 106, anion gap 10, creatinine 0.8, BUN/ creatinine ratio 12.5, glucose 116 Alcohol level 349 AST/ALT to 210/218 Total bilirubin 0.4 Hepatitis viral panel is negative for hepatitis B, Hepatitis C, hepatitis A Problems list: * Alcohol detox * EtOH withdrawal * Pain in right hypochondrium/Hepatic steatosis Alcohol detox: * Discussed with attending and he was in favor of discharge * Discussed with manager case management and the patient discharged tomorrow to [facility] * We can discharge him on Friday to [facility]. * He is on Lorazepam taper 1 mg every 12 * Accomprosate for craving * FA, B12 and multivitamin * Lorazepam as needed hold Pain in right hypochondrium/Hepatic steatosis: Patient having hepatic steatosis on ultrasonography He is feeling a little bit discomfort but there is no pain right now Patient will follow for spina bifida physician outpatient basis Full code DVT GI prophylaxis Problem List: 1. Alcohol withdrawal 2. Polysubstance abuse Pain Ratin Pain Location: No pain Pain Goal: Remain pain free Pain Plan: Pain management pathway Tomorrow's Labs & Rationales: No labs Carol Morales MD 06/27/18 1218: Attending MD Review Statement Attending Statement Attending MD Statement: examined this patient, discuss w/resident/PA/BENCH SCIENTIST, agreed w/resident/PA/BENCH SCIENTIST, reviewed EMR data (avail), discussed with nursing, amended to note Attending Assessment/Plan: Patient seen and examined. Resting comfortably unless in any acute distress. No issues overnight. Each are reviewed. He is CIWA score has been 0 consistently. He has not required any IV Ativan in the past 24 hours. Received 1.5 mg every 12 hours of Ativan yesterday. On examination he is alert and oriented 3. Conversant appropriately. He is not agitated or tremulous. He is medically stable to be discharged. We will follow-up with the case management service regarding admission to the inpatient alcohol rehab program.
[2018-06-27 10:00] VITALS: BP 136/96
[2018-06-27 14:25] VITALS: BP 150/52
[2018-06-27 21:20] VITALS: BP 164/108
[2018-06-27 21:32] VITALS: BP 148/90
--- NOTE | 2018-06-27 23:31 | Patient Discharge Instructions ---
Discharge Instructions General Discharge Information You were seen/treated for: Alcohol detox [facility] for these problems: Palpitation, chest pain, abdominal, tremors, apprehension Special Instructions: Please follow-up with your primary care physician in 1 week. In case of any medical attention please contact your primary care physician Please follow-up with your [facility] for outpatient facility Diet Continue normal diet: Yes Acute Coronary Syndrome Inclusion Criteria At DC or during hospital stay patient has or had the following: ACS DIAGNOSIS No Discharge Core Measures Meds if any: Prescribed or Continued at Discharge Meds if any: NOT Prescribed or Continued at Discharge Congestive Heart Failure Inclusion Criteria At DC or during hospital stay patient has or had the following: CHF DIAGNOSIS No Discharge Core Measures Meds if any: Prescribed or Continued at Discharge Meds if any: NOT Prescribed or Continued at Discharge Cerebrovascular accident Inclusion Criteria At DC or during hospital stay patient has or had the following: CVA/TIA Diagnosis No Discharge Core Measures Meds if any: Prescribed or Continued at Discharge Meds if any: NOT Prescribed or Continued at Discharge Venous thromboembolism Inclusion Criteria VTE Diagnosis No VTE Type NONE VTE Confirmed by (Test) NONE Discharge Core Measures - Per Current guidelines, there needs to be overlap - treatment for the first 5 days of Warfarin therapy. - If discharged on Warfarin prior to 5 days of - overlap therapy, the patient will need to be - assessed for post discharge needs including - *Post discharge parental anticoagulation - *Warfarin and/or parental anticoagulation education - *Follow up date to check INR post discharge At least 5 days overlap therapy as Inpatient No Meds if any: Prescribed or Continued at Discharge Note: Overlap Therapy is Warfarin and Anticoagulant Meds if any: NOT Prescribed or Continued at Discharge
[2018-06-28 06:48] VITALS: BP 114/80
[2018-06-28 08:00] VITALS: BP 150/92
--- NOTE | 2018-06-28 08:06 | PN- Housestaff ---
Mitchell Turner 06/28/18 0806: Subjective Follow-up For: Alcohol detox Clearance for [facility] Subjective: Patient seen and examined at bedside. He was complaining that he was anxious last night. He denies sweating, chest pain, palpitation, seizure, abdominal pain, diarrhea, constipation, burning micturition. Review of Systems Constitutional: Reports: see HPI. Objective Last 24 Hrs of Vital Signs/I&O Vital Signs Date Time Temp Pulse Resp B/P B/P Pulse O2 O2 Flow FiO2 Mean Ox Delivery Rate 06/28 0800 96 18 150/92 06/28 0648 98.2 87 20 114/80 95 Room Air 06/27 2132 91 148/90 06/27 2120 98.1 108 19 164/108 96 Room Air 06/27 2030 106 164/108 06/27 1425 97.8 92 18 150/52 97 Physical Exam General Appearance: Alert, Oriented X3, Cooperative, No Acute Distress Cardiovascular: Regular Rate, Normal S1, Normal S2 Lungs: Clear to Auscultation, Normal Air Movement Abdomen: Normal Bowel Sounds, Soft, No Tenderness Assessment/Plan Assessment: 43-year-old male with past medical history alcohol use disorder, depression, history of seizures related to alcohol withdrawal presented to emergency department for alcohol detox and [facility] clearance. Previously he was enrolled in alcohol detox program at [facility], but relapsed. At the time of presentation to emergency department his vitals and labs are given below Vitals : temperature 9. Labs: WBC 5.4, hemoglobin/hematocrit 16.4/46.8, MCV 93.5, platelet count 292 Sodium 144, potassium 4.0, chloride 106, anion gap 10, creatinine 0.8, BUN/ creatinine ratio 12.5, glucose 116 Alcohol level 349 AST/ALT to 210/218 Total bilirubin 0.4 Hepatitis viral panel is negative for hepatitis B, Hepatitis C, hepatitis A Problems list: * Alcohol detox * EtOH withdrawal * Pain in right hypochondrium/Hepatic steatosis Alcohol detox: * Patient was admitted for alcohol detox * His last CIWA score was 1 * During detox he had no history of seizure or severe hypotension or panic attack * He was on lorazepam taper up * Last dose was 1 mg on the day of discharge * [facility] * His other home medication acamprosate continued for alcohol craving Pain in right hypochondrium/Hepatic steatosis: Patient having hepatic steatosis on ultrasonography He is feeling a little bit discomfort but there is no pain right now Patient will follow for spina bifida physician outpatient basis Problem List: 1. Alcohol withdrawal 2. Polysubstance abuse Pain Ratin Pain Location: No pain Pain Goal: Remain pain free Pain Plan: Pain management pathway Tomorrow's Labs & Rationales: No labs Carol Morales MD 06/28/18 1000: Attending MD Review Statement Attending Statement Attending MD Statement: examined this patient, discuss w/resident/PA/PRACTICE NURSE, agreed w/resident/PA/PRACTICE NURSE, reviewed EMR data (avail), discussed with nursing, discussed with case mgmt, amended to note Attending Assessment/Plan: Patient seen and examined. Resting comfortably not in any acute distress. No issues overnight. Ambulating freely around the unit. He had to be discharged today. He is scheduled to be admitted to the inpatient alcohol rehabilitation program at [facility] later on this morning. He is medically stable to be released today.
[2018-06-28] MEDS ORDERED: ONE DAILY MULT1 EAC2 PO (08:37)
--- NOTE | 2018-06-28 09:45 | Discharge Summary ---
Visit Information Visit Dates Admission Date: 06/23/18 Discharge Date: 06/28/18 Hospital Course Course Attending Physician: Ashley Weinstein MD Primary Care Physician: Patient Has No Primary Care Dr Hospital Course: The patient is a 43-year-old male with past medical history significant for alcohol use disorder, depression, history of seizures related to alcohol withdrawal. Patient presented to [place] requesting alcohol detox and clearance for [facility]. Vitals on presentation were within normal limits except tachycardic up to 106 likely secondary to withdrawal. Admission labs were significant for serum alcohol level of 349, methadone 63, amphetamines 139, urine cocaine screen less than 50, AST 210, ALT 218 The patient was admitted to general medicine floor for treatment and evaluation of alcohol withdrawal. He was maintained on Ativan taper as per [facility] protocol and his Ativan taper has been completed. He was also maintained on multivitamin folate and thiamine. His stay was uncomplicated all his home medications were continued. Patient also complained of right upper quadrant pain with elevated AST and ALT most likely it was secondary to alcoholic hepatitis. Right upper quadrant ultrasound showed hepatic steatosis and hepatitis panel was negative and LFTs were downtrending. Patient also had INR of 1.27 most likely secondary to coagulopathy due to liver disease secondary to alcohol He was full code during his stay and on his home medications were continued Allergies: Coded Allergies: No Known Allergies (06/23/18) Disposition Summary Disposition Principal Diagnosis: Alcohol withdrawal and detoxification Additional Diagnosis: Alcoholic hepatitis Coagulopathy secondary to liver disease Discharge Disposition: [facility] Discharge Instructions General Discharge Information Code Status: Full Code Patient's Diet: As tolerated Patient's Activity: As tolerated Follow-Up Instructions/Appts: Follow[facility]up with [facility] Follow-up with your primary care after discharge Medications at Discharge Discharge Medications: Continue taking these medications: Bupropion HCl (Wellbutrin XL) 150 MG TAB.ER.24H 1 Tablet ORAL DAILY Comments: last given 06/28/18 @ 0830 Escitalopram Oxalate (Escitalopram Oxalate) 20 MG TABLET 1 Tablet ORAL DAILY Comments: last given 06/28/18 @ 0830 Mirtazapine (Mirtazapine) 7.5 MG TABLET 1 Tablet ORAL Every night Comments: last given 06/27/18 @ 2030 Omeprazole (Omeprazole) 40 MG CAPSULE.DR 1 Capsule ORAL TWICE DAILY Comments: last given 06/28/18 @ 0830 Nystatin (Nystatin) 100,000 UNIT/ML ORAL.SUSP 5 Milliliters ORAL 4 TIMES A DAY Comments: last given 06/28/18 @ 0830 Acamprosate Calcium (Acamprosate Calcium) 333 MG TABLET.DR 2 Tablet ORAL THREE TIMES DAILY Comments: last given 06/28/18 @ 0830 Start taking the following new medications: Multivitamin (One Daily Multivitamin) 1 EACH TABLET 1 Tablet ORAL DAILY Qty = 30 No Refills Comments: last given 06/28/18 @ 0830 Copies To: Keven SCHROEDER,Keven Attending MD Review Statement Documenting Attending: Carol Morales MD Other Findings: Discharged in stable condition on behalf of Dr Ashley Weinstein,.
== END 2018-06-28 09:58 | DRG 897 ==
LOC: ERH 14:15 → ERHI 18:28 → 2NB 18:28 → ENRESERV 22:06 → ENTRNSPT 22:36 → EDTRNSPT 22:37 → EDTRNSPTSTS 22:40 → 2NB 22:52 → CMPTRNSPT 22:52 → 2NB 22:53
PROVIDERS: Emergency Medicine; Physician Assistant Medical; Student in an Organized Health Care Education/Training Program
DX: F10.239 Alcohol dependence with withdrawal, unspecified (principal); D68.4 Acquired coagulation factor deficiency; F32.9 Major depressive disorder, single episode, unspecified; F14.10 Cocaine abuse, uncomplicated; K70.10 Alcoholic hepatitis without ascites; R74.0 Nonspecific elevation of levels of transaminase and lactic acid dehydrogenase [LDH]; K76.0 Fatty (change of) liver, not elsewhere classified; K70.9 Alcoholic liver disease, unspecified; K21.9 Gastro-esophageal reflux disease without esophagitis; F10.229 Alcohol dependence with intoxication, unspecified; Y90.8 Blood alcohol level of 240 mg/100 ml or more
CPT/HCPCS: 2NBSP; 36415; 80307; 81003; 82436; 93005; 93010; 96374; 96375; 99291; G0480; J1650; J3490